=== PATIENT | female | born 1975 | race Caucasian/White ===

== ENCOUNTER 2020-09-30 16:54 | Emergency (ER) | payer SELFPAY ==
[~2020-09-30] VITALS: Ht 157.5 cm; Wt 79.4 kg
== END 2020-09-30 19:52 | disposition home or self-care (01) ==
LOC: ER1 16:54
DX: U07.1 COVID-19 (principal); I10 Essential (primary) hypertension; Z88.0 Allergy status to penicillin
CPT/HCPCS: 71045; 99283; M0243